=== PATIENT | male | born 1940 | race Caucasian/White ===

== ENCOUNTER → 2017-08-29 | Outpatient (CLI) | payer OTHER ==
[2017-08-29 17:15] LABS: ALBUMIN 3.5 gm/dl (3.4-5.0); ALKALINE PHOSPHATASE 72 U/L (45-117); ALT/SGPT 24 U/L (12-78); AST/SGOT 18 U/L (15-37); BLOOD UREA NITROGEN 23 mg/dl (7-18); CALCIUM 9.4 mg/dl (8.5-10.1); CARBON DIOXIDE 26 mmol/L (21-32); CREATININE 1.14 mg/dl (0.60-1.40); GLUCOSE 111 mg/dl (70-99); POTASSIUM 4.2 mmol/L (3.5-5.1); SODIUM 140 mmol/L (136-145); TOTAL PROTEIN 8.2 gm/dl (6.4-8.2)
[2017-08-29 17:29] LABS: CREATININE RANDOM URINE 78.3 mg/dl
[2017-08-30 06:19] LABS: HEMOGLOBIN A1C 7.4 % (4.5-5.6)
== END | disposition home or self-care (01) ==
LOC: C.LABPBG 12:33
PROVIDERS: ATTEND Physician Assistant
DX: E11.9 Type 2 diabetes mellitus without complications (principal)

== ENCOUNTER 2020-10-25 16:11 | Inpatient (IN) ==
--- NOTE | 2020-10-25 16:52 | Emergency Department Note ---
Impression & Plan Pyelonephritis ED Provider Note NAME: WALDO CRAFT AGE: 80 SEX: M : 1940 ARRIVES VIA: Walk-In INFORMANT: Patient, ED PROVIDER(S): Xiang Campbell MD Chief Complaint: Urinary symptoms, fever, back pain HPI: Patient does present with the above symptoms and states that he believes that his antibiotics have not been working. The patient has been on Keflex, Macrobid as well as Bactrim. I did review the patient's urine culture which shows that it should be sensitive to these medications and the patient has had Enterococcus as well as staph. Patient states that he has had fever to 102 most recently today. The patient does have some lower back discomfort. Patient does have a prior history of kidney stones. Patient denies any blood in the urine or stool. Patient describes the back pain and lower back is nonradiating. Patient denies any bowel or bladder incontinence. Patient denies any saddle anesthesia recent heavy lifting twisting or turning. Patient states he has been having urinary hesitancy. The patient has had issues with prostate before but is not currently follow with a urologist. The patient had followed with urologist in [place] who has since retired. Patient denies any nausea vomiting chest pains or shortness of breath. Patient states he has been compliant with his sc dications. The patient states that he has been taking the antibiotics for 2 to 3 weeks. ROS: See HPI for pertinent positives and negatives. A total of 10 systems were reviewed and otherwise negative. Past medical history: See below Surgical history: See below Social history: See below Physical Exam: GENERAL: Wearing glasses and a mask. NAD, non-toxic. EYE EXAM: Normal conjunctiva. PERRL, no anisocoria and EOM's grossly intact w/o pain. NECK: Supple, no nuchal rigidity, no adenopathy, non-tender. No signs of meningismus. LUNGS: Clear to auscultation. Normal chest wall mechanics. HEART: NSR, no MRG. ABDOMEN: Abdomen soft, non-tender, normo-active bowel sounds, no masses, no rebound or guarding. BACK: No CVA TTP. SKIN: No rashes and no bruising. UPPER EXTREMITIES: Upper extremities are grossly normal. LOWER EXTREMITIES: Grossly normal, no edema. NEURO EXAM: A&O x3, cranial nerves II-XII grossly intact, normal speech, moves all 4 extremities on command w/o issue. Differential diagnoses: Appendicitis, testicular torsion, infections, diverticulitis, UTI, obstruction, mesenteric ischemia, aortic pathology, inflammatory bowel disease, renal colic, PUD, pancreatitis, biliary pathology, hernia, volvulus, constipation, as well as other pathologies. Course: Patient was seen and evaluated the bedside. Full history physical exam was performed. EKG interpreted by me Sinus rhythm, rate of 77, normal intervals, normal axis, to inversion in lead III. PVC noted. Imaging Studies: See below Cardiac monitoring: An order was placed for continuous cardiac monitoring. The monitor shows a rate of 83 with sinus rhythm. MDM: Patient's chest x-ray shows cardiomegaly without obvious edema. Blood work shows a normal white count with mild anemia. Platelet count is unremarkable. Kidney function unremarkable. Troponin is detectable but not elevated. The patient is not complained of any chest pains or shortness of breath. Urinalysis does show leuks and whites with epithelials but no evidence of nitrites or bacteria Covid negative. CT abdomen pelvis shows chronic pancreatitis but no evidence of acute pancreatitis. Patient does have bilateral perinephric fat stranding. Patient has had intermittently lower blood pressures with daily associated perinephric stranding and possible failed outpatient treatment pyelonephritis believe the patient would benefit from inpatient treatment at this time. I did speak with the on-call hospitalist Dr. Amezcua and the patient was admitted to the medicine service. Past Med/Surg History Medical History Arthritis Chronic venous stasis dermatitis of both lower extremities Depression Detached retina, left (~2018) again in 2019 Diabetic neuropathy Lower urinary tract symptoms (LUTS) Lumbar spinal stenosis Mild cognitive impairment Type 2 diabetes mellitus Surgical History History of knee replacement LEFT History of lithotripsy RENAL LITHOTRIPSY Family History Mother Breast cancer Brother Myocardial infarction Denies family history of Ovarian cancer Prostate cancer Colorectal cancer Social History Smoking Status: Former smoker Tobacco Type: Cigarettes Second Hand Exposure: No; Hx Alcohol Use: No Hx Substance Use: No Preferred Language: Estonian Communication Ability: Effective Visual Impairment: No Limitations Hearing Ability: Hard of Hearing Beliefs That Will Affect Care: None marital status: Current Living Situation Comment: lives with spouse current occupational status: retired Feels Safe at Home: Yes Childhood Exposure to Second-Hand Smoke: No caffeine: Yes (Occasional coffee.) during the past year weight has: remained stable Dental Care, Regularly: No Physical Activity Frequency: Other Physical Activity Frequency Comment: LIMITED BY PHYSICAL CONDITION Seatbelt Use: always Sunscreen Use: No Allergies Allergies Allergy/AdvReac Type Severity Reaction Status Date / Time pregabalin [From Lyrica] Allergy racing Verified 10/25/20 17:32 heart and pain down shoulders. Home Meds Home Medications Medication Instructions Recorded Confirmed cholecalciferol (vitamin D3) 50 2,000 units PO BID #30 tab 10/11/18 10/25/20 mcg (2,000 unit) tablet polyethylene glycol 3350 17 17 gm PO .COMPLEX gm 10/11/18 10/25/20 gram/dose oral powder magnesium 200 mg tablet 200 mg PO DAILY 12/22/18 10/25/20 multivitamin (Daily Multiple) 1 tab PO DAILY 12/22/18 10/25/20 omega-3 fatty acids 1,000 mg 1,000 mg PO BID cap 12/22/18 10/25/20 capsule (Fish Oil Concentrate) alpha lipoic acid 300 mg capsule 600 mg PO DAILY cap 01/21/20 10/25/20 Previous Rx's Medication Instructions Recorded tamsulosin 0.4 mg capsule (Flomax) 0.4 mg PO .COMPLEX #90 cap 06/25/20 glipizide 5 mg tablet, extended 5 mg PO DAILY #90 tab 10/01/20 release 24 hr metformin 500 mg tablet 500 mg PO BID #180 tab 10/01/20 Results & Data (ED) Vital Signs Vital Signs - 24 hr 10/25/20 16:17 10/25/20 16:53 10/25/20 17:00 Temperature 36.8 C Temperature Source Oral Pulse Rate 86 75 68 Pulse Rate [Apical] Pulse Rate from SpO2 Sensor Respiratory Rate 18 21 20 Respiratory Effort / Characteristics Non-Labored Spontaneous Respiratory Depth Normal Respiratory Pattern Regular Blood Pressure 121/56 L 94/46 L Blood Pressure [Right Arm] Blood Pressure Mean 77 62 Blood Pressure Mean [Right Arm] Blood Pressure Position Sitting Pulse Oximetry 95 95 Oxygen Delivery Method Room Air Sepsis Recent Fever Within 48 Hours No Sepsis New/Unexplained Change in Mental Status N/A Sepsis Action Taken by Nursing No Action Required 10/25/20 17:20 10/25/20 17:30 10/25/20 18:00 Temperature Temperature Source Pulse Rate 77 71 74 Pulse Rate [Apical] 77 Pulse Rate from SpO2 Sensor 69 73 Respiratory Rate 20 24 20 Respiratory Effort / Characteristics Non-Labored Spontaneous Respiratory Depth Normal Respiratory Pattern Regular Blood Pressure 103/53 L 111/57 L Blood Pressure [Right Arm] 94/46 L Blood Pressure Mean 69 75 Blood Pressure Mean [Right Arm] 62 Blood Pressure Position Pulse Oximetry 95 98 98 Oxygen Delivery Method Room Air Sepsis Recent Fever Within 48 Hours Sepsis New/Unexplained Change in Mental Status Sepsis Action Taken by Nursing 10/25/20 18:31 10/25/20 19:00 10/25/20 19:30 Temperature Temperature Source Pulse Rate 96 H 80 74 Pulse Rate [Apical] Pulse Rate from SpO2 Sensor 70 78 Respiratory Rate 24 24 20 Respiratory Effort / Characteristics Respiratory Depth Respiratory Pattern Blood Pressure 106/50 L 103/46 L Blood Pressure [Right Arm] Blood Pressure Mean 68 65 Blood Pressure Mean [Right Arm] Blood Pressure Position Pulse Oximetry 95 97 91 Oxygen Delivery Method Sepsis Recent Fever Within 48 Hours Sepsis New/Unexplained Change in Mental Status Sepsis Action Taken by Nursing 10/25/20 20:00 10/25/20 20:30 Temperature Temperature Source Pulse Rate 75 83 Pulse Rate [Apical] Pulse Rate from SpO2 Sensor 66 78 Respiratory Rate 21 22 Respiratory Effort / Characteristics Respiratory Depth Respiratory Pattern Blood Pressure 117/58 L 133/81 Blood Pressure [Right Arm] Blood Pressure Mean 77 98 Blood Pressure Mean [Right Arm] Blood Pressure Position Pulse Oximetry 97 97 Oxygen Delivery Method Sepsis Recent Fever Within 48 Hours Sepsis New/Unexplained Change in Mental Status Sepsis Action Taken by [facility] Medications Current Medication List: was personally reviewed by me Laboratory Data Attestation: I reviewed the patient's lab results. Result diagrams: 10/25/20 17:17 10/25/20 17:17 Lab Results 10/25/20 10/25/20 10/25/20 Range/Units 17:17 17:17 18:32 WBC 7.00 (4.8-10.8) K/uL RBC 3.96 L (4.7-6.1) M/uL Hgb 11.7 L (14.0-18.0) g/dL Hct 35.6 L (42-52) % MCV 89.9 (80-100) fL MCH 29.5 (25-34) pg MCHC 32.9 (32-36) g/dL RDW Std Deviation 45.3 (36.4-46.3) fL RDW Coeff of Kayce 13.7 (11.5-14.5) % Plt Count 156 (130-400) K/uL MPV 8.9 (7.4-10.4) fL Immature Gran % (Auto) 0.1 % Neut % (Auto) 63.0 % Lymph % (Auto) 25.3 % [place] % (Auto) 10.6 % Eos % (Auto) 0.6 % Baso % (Auto) 0.4 % Neut # (Auto) 4.41 (1.4-6.5) K/uL Lymph # (Auto) 1.77 (1.2-3.4) K/uL [place] # (Auto) 0.74 H (0.11-0.59) K/uL Eos # (Auto) 0.04 (0-0.5) K/uL Baso # (Auto) 0.03 (0-0.2) K/uL Immature Gran # (Auto) 0.01 (0.00-0.02) K/uL Sodium 138 (136-145) mmol/L Potassium 3.7 (3.5-5.1) mmol/L Chloride 107 (98-107) mmol/L Carbon Dioxide 24 (21-32) mmol/L Anion Gap 7.0 (3-11) BUN 19 H (7-18) mg/dl Creatinine 1.11 (0.6-1.4) mg/dl Est Cr Clr Drug Dosing 58.2 ml/min Est GFR ( Amer) 71.3 ml/min Est GFR (Non-Af Amer) 61.5 ml/min BUN/Creatinine Ratio 17.3 (10-20) Glucose 108 H (70-99) mg/dl Calcium 8.9 (8.5-10.1) mg/dl Magnesium 1.9 (1.8-2.4) mg/dl Total Bilirubin 0.3 (0.2-1) mg/dl AST 20 (15-37) U/L ALT 25 (12-78) U/L Alkaline Phosphatase 59 (45-117) U/L Troponin I 0.033 (0-0.045) ng/ml Total Protein 6.9 (6.4-8.2) gm/dl Albumin 3.2 L (3.4-5.0) gm/dl Globulin 3.7 (2.5-4.0) gm/dl Albumin/Globulin Ratio 0.9 (0.9-2) TSH 0.876 (0.300-4.500) uIu/ml Urine Color Yellow Urine Appearance Clear (Clear) Urine pH 5.5 (4.5-7.5) Ur Specific [place] 1.013 (1.000-1.030) Urine Protein Negative (Negative) Urine Glucose (UA) Negative (Negative) Urine Ketones Negative (Negative) Urine Blood Negative (Negative) Urine Nitrite Negative (Negative) Urine Bilirubin Negative (Negative) Urine Urobilinogen Negative (Negative) Ur Leukocyte Esterase 1+ H (Negative) Urine WBC (Auto) 5-10 H (0-5) /hpf Urine RBC (Auto) 0-4 (0-4) /hpf U Hyaline Cast (Auto) 0 (0-5) /lpf U Epithel Cells (Auto) >30 H (0-5) /lpf Urine Bacteria (Auto) Negative (Negative) COVID-19 Eval Order SARS-CoV-2 (PCR) (Negative) 10/25/20 10/25/20 Range/Units 20:25 20:25 WBC (4.8-10.8) K/uL RBC (4.7-6.1) M/uL Hgb (14.0-18.0) g/dL Hct (42-52) % MCV (80-100) fL MCH (25-34) pg MCHC (32-36) g/dL RDW Std Deviation (36.4-46.3) fL RDW Coeff of Kayce (11.5-14.5) % Plt Count (130-400) K/uL MPV (7.4-10.4) fL Immature Gran % (Auto) % Neut % (Auto) % Lymph % (Auto) % [place] % (Auto) % Eos % (Auto) % Baso % (Auto) % Neut # (Auto) (1.4-6.5) K/uL Lymph # (Auto) (1.2-3.4) K/uL [place] # (Auto) (0.11-0.59) K/uL Eos # (Auto) (0-0.5) K/uL Baso # (Auto) (0-0.2) K/uL Immature Gran # (Auto) (0.00-0.02) K/uL Sodium (136-145) mmol/L Potassium (3.5-5.1) mmol/L Chloride (98-107) mmol/L Carbon Dioxide (21-32) mmol/L Anion Gap (3-11) BUN (7-18) mg/dl Creatinine (0.6-1.4) mg/dl Est Cr Clr Drug Dosing ml/min Est GFR ( Amer) ml/min Est GFR (Non-Af Amer) ml/min BUN/Creatinine Ratio (10-20) Glucose (70-99) mg/dl Calcium (8.5-10.1) mg/dl Magnesium (1.8-2.4) mg/dl Total Bilirubin (0.2-1) mg/dl AST (15-37) U/L ALT (12-78) U/L Alkaline Phosphatase (45-117) U/L Troponin I (0-0.045) ng/ml Total Protein (6.4-8.2) gm/dl Albumin (3.4-5.0) gm/dl Globulin (2.5-4.0) gm/dl Albumin/Globulin Ratio (0.9-2) TSH (0.300-4.500) uIu/ml Urine Color Urine Appearance (Clear) Urine pH (4.5-7.5) Ur Specific [place] (1.000-1.030) Urine Protein (Negative) Urine Glucose (UA) (Negative) Urine Ketones (Negative) Urine Blood (Negative) Urine Nitrite (Negative) Urine Bilirubin (Negative) Urine Urobilinogen (Negative) Ur Leukocyte Esterase (Negative) Urine WBC (Auto) (0-5) /hpf Urine RBC (Auto) (0-4) /hpf U Hyaline Cast (Auto) (0-5) /lpf U Epithel Cells (Auto) (0-5) /lpf Urine Bacteria (Auto) (Negative) COVID-19 Eval Order Covid19 at [facility] SARS-CoV-2 (PCR) NEGATIVE (Negative) Administered Medications Discontinued Medications Sodium Chloride (Nss 1000ml) 1,000 mls @ 999 mls/hr IV .Q1H1M SCOTT Stop: 10/25/20 18:00 Last Infusion: 10/25/20 18:27 Dose: 0 mls/hr Documented by: [id number] Admin: 10/25/20 17:26 Dose: 999 mls/hr Documented by: [id number] Sodium Chloride (Nss) 500 mls @ 999 mls/hr IV .Q31M ONE Stop: 10/25/20 20:39 Last Admin: 10/25/20 20:16 Dose: 999 mls/hr Documented by: [id number] Daptomycin 400 mg/ Syringe 8 mls @ 4 mls/min IV NOW ONE; Protocol Stop: 10/25/20 20:38 Last Admin: 10/25/20 20:59 Dose: 4 mls/min Documented by: [id number] Ioversol (Optiray 320 100ml) 94 ml IV ONCE ONE Stop: 10/25/20 18:18 Last Admin: 10/25/20 18:18 Dose: 94 ml Documented by: [id number] Imaging Data Radiologist's Impression: Abdomen/Pelvis CT 10/25/20 16:[address] WITH IV CONTRAST CT DOSE: 895.09 mGy.cm HISTORY: Urinary retention, fever, h/o stones TECHNIQUE: Multiaxial CT images of the abdomen and pelvis were performed fo llowing the use of intravenous contrast. A dose lowering technique was utilized adhering to the principles of ALARA. COMPARISON STUDY: None. FINDINGS: Mild peripheral interstitial thickening at the lung bases. This is likely chronic. No pneumoperitoneum. No pneumatosis. There is an old mild anterior wedge-shaped compression deformity at L1. No acute fractures within the visualized osseous structures. The heart is mildly enlarged. Coronary artery calcifications are noted. Small fat-containing bilateral inguinal hernias. The liver, gallbladder, spleen, and adrenal glands are within normal limits. There are few punctate calcifications within the pancreas consistent with chronic pancreatitis. No CT evidence for acute pancreatitis. No renal or ureteral stones. No hydronephrosis. Bilateral renal hypodense lesions are noted. The majority of these favor cysts. Dominant lesion within the lower pole of the right kidney measures 6.3 cm. There is an indeterminate exophytic intermediate density lesion within the anterior interpolar left kidney measuring 7 mm. The main portal vein is patent. Normal caliber abdominal aorta. No retroperitoneal l ymphadenopathy. The prostate gland is mildly enlarged. The bladder is mildly distended. There is a 5.5 cm right anterior bladder diverticulum. No pelvic free fluid. Moderate well-formed stool within the colon. No bowel wall thickening or obstruction. Mild bilateral perinephric fat stranding. There is mild bladder wall thickening at the right anterior bladder diverticulum with minimal adjacent fat stranding. This could represent a focal cystitis. IMPRESSION: 1. No bowel wall thickening or obstruction. 2. Chronic pancreatitis. No CT evidence for acute pancreatitis. 3. Mild bilateral perinephric edema/fat stranding. This is indeterminate and could be chronic. Recommend correlation with urinalysis to exclude the less likely possibility of an infectious process. 4. No renal stones or hydronephrosis. 5. Mildly distended bladder with a 5.5 cm anterior bladder diverticulum. The wall of the diverticulum is slightly thickened with minimal adjacent fat stranding. This could represent a cystitis. Recommend correlation with urinalysis. 6. An indeterminate 7 mm intermediate density lesion within the left kidney. This could represent a hyperdense cyst or subcentimeter renal mass. 7. Additional findings as described above. ACT 112: Negative or not required by law. Electronically signed by: Sony Eid M.D. 10/25/2020 6:41 PM Chest X-Ray 10/25/20 16:52 XR chest 1V portable HISTORY: weakness COMPARISON: None. FINDINGS: No pneumothorax. No pleural effusions. The heart is mildly enlarged. There are low lung volumes and mild elevation of the right hemidiaphragm. There is mild central pulmonary vascular congestion without overt edema. No focal lung consolidations to suggest pneumonia. IMPRESSION: Cardiomegaly with mild central pulmonary vascular congestion without overt edema. ACT 112: Negative or not required by law. Electronically signed by: Sony Eid M.D. 10/25/2020 5:11 PM Discharge Plan Visit Data Chief Complaint: Unable to Void Stated Complaint: CANNOT VOID, FEVER ED Provider: Xiang Campbell Discharge Problem: Pyelonephritis Forms Stand Alone Forms: [facility] Prescriptions Prescriptions: No Action tamsulosin [Flomax] 0.4 mg capsule 0.4 mg PO .COMPLEX Qty: 90 RF: 2 metformin 500 mg tablet 500 mg PO BID Qty: 180 RF: 1 glipizide 5 mg tablet extended release 24hr 5 mg PO DAILY Qty: 90 RF: 1 multivitamin [Daily Multiple] tablet 1 tab PO DAILY RF: 0 omega-3 fatty acids [Fish Oil Concentrate] 1,000 mg capsule 1,000 mg PO BID RF: 0 magnesium 200 mg tablet 200 mg PO DAILY RF: 0 cholecalciferol (vitamin D3) 2,000 unit tablet 2,000 units PO BID Qty: 30 RF: 0 polyethylene glycol 3350 17 gram/dose powder 17 gm PO .COMPLEX RF: 0 alpha lipoic acid 300 mg capsule 600 mg PO DAILY RF: 0 Referrals Referrals: Jacqueline Hewitt DO [Primary Care Provider] -
[2020-10-25] MEDS ORDERED: SODIUM CHLORIDE 0.9% 1000ML 1,000 ML IV SCH (17:00)
--- NOTE | 2020-10-25 17:12 | XRay Report ---
XR chest 1V portable HISTORY: weakness COMPARISON: None. FINDINGS: No pneumothorax. No pleural effusions. The heart is mildly enlarged. There are low lung vol umes and mild elevation of the right hemidiaphragm. There is mild central pulmonary vascular congesti on without overt edema. No focal lung consolidations to suggest pneumonia. IMPRESSION: Cardiomegaly with mild central pulmonary vascular congestion without overt edema. ACT 112: Negative or not required by law. Electronically signed by: Sony Eid M.D. 10/25/2020 5:11 PM
[2020-10-25 17:25] LABS: Basophils # (auto) 0.03 K/uL (0-0.2); Basophils % (auto) 0.4 %; Eosinophils # (auto) 0.04 K/uL (0-0.5); Eosinophils % (auto) 0.6 %; Hematocrit (blood only) 35.6 % (42-52); Hemoglobin 11.7 g/dL (14.0-18.0); Immature Granulocytes # (auto) 0.01 K/uL (0.00-0.02); Immature Granulocytes % (auto) 0.1 %; Lymphocytes # (auto) 1.77 K/uL (1.2-3.4); Lymphocytes % (auto) 25.3 %; Mean Corpuscular Hemoglobin 29.5 pg (25-34); Mean Corpuscular Hgb Conc 32.9 g/dL (32-36); Mean Corpuscular Volume 89.9 fL (80-100); Mean Platelet Volume 8.9 fL (7.4-10.4); Monocytes # (auto) 0.74 K/uL (0.11-0.59); Monocytes % (auto) 10.6 %; Neutrophils # (auto) 4.41 K/uL (1.4-6.5); Platelet Count 156 K/uL (130-400); RDW Coefficient of Variation 13.7 % (11.5-14.5); RDW Standard Deviation 45.3 fL (36.4-46.3); Red Blood Count 3.96 M/uL (4.7-6.1)
[2020-10-25 17:46] LABS: Albumin Level 3.2 gm/dl (3.4-5.0); BUN Creatinine Ratio 17.3 (10-20); Calcium 8.9 mg/dl (8.5-10.1); Creatinine Clr Calc Pharmacy 58.2 ml/min; Est GFR (African American) 71.3 ml/min; Est GFR (Non-African American) 61.5 ml/min; Magnesium 1.9 mg/dl (1.8-2.4); Potassium 3.7 mmol/L (3.5-5.1)
[2020-10-25 17:57] LABS: Albumin Globulin Ratio 0.9 (0.9-2); Bilirubin,Total 0.3 mg/dl (0.2-1); Globulin 3.7 gm/dl (2.5-4.0); Thyroid Stimulating Hormone 0.876 uIu/ml (0.300-4.500); Total Protein 6.9 gm/dl (6.4-8.2); Troponin I 0.033 ng/ml (0-0.045)
[2020-10-25] MEDS ORDERED: OPTIRAY 320 100ml IV ONE (18:17)
--- NOTE | 2020-10-25 18:42 | CT Scan Report ---
ABDOMEN AND PELVIS CT WITH IV CONTRAST CT DOSE: 895.09 mGy.cm HISTORY: Urinary retention, fever, h/o stones TECHNIQUE: Multiaxial CT images of the abdomen and pelvis were performed following the use of intrave nous contrast. A dose lowering technique was utilized adhering to the principles of ALARA. COMPARISON STUDY: None. FINDINGS: Mild peripheral interstitial thickening at the lung bases. This is likely chronic. No pneum operitoneum. No pneumatosis. There is an old mild anterior wedge-shaped compression deformity at L1. No acute fractures within the visualized osseous structures. The heart is mildly enlarged. Coronary a rtery calcifications are noted. Small fat-containing bilateral inguinal hernias. The liver, gallbladd er, spleen, and adrenal glands are within normal limits. There are few punctate calcifications within the pancreas consistent with chronic pancreatitis. No CT evidence for acute pancreatitis. No renal o r ureteral stones. No hydronephrosis. Bilateral renal hypodense lesions are noted. The majority of th elliott favor cysts. Dominant lesion within the lower pole of the right kidney measures 6.3 cm. There is an indeterminate exophytic intermediate density lesion within the anterior interpolar left kidney primo suring 7 mm. The main portal vein is patent. Normal caliber abdominal aorta. No retroperitoneal lymph adenopathy. The prostate gland is mildly enlarged. The bladder is mildly distended. There is a 5.5 cm right anterior bladder diverticulum. No pelvic free fluid. Moderate well-formed stool within the col on. No bowel wall thickening or obstruction. Mild bilateral perinephric fat stranding. There is mild bladder wall thickening at the right anterior bladder diverticulum with minimal adjacent fat strandin g. This could represent a focal cystitis. IMPRESSION: 1. No bowel wall thickening or obstruction. 2. Chronic pancreatitis. No CT evidence for acute pancreatitis. 3. Mild bilateral perinephric edema/fat stranding. This is indeterminate and could be chronic. Recomm end correlation with urinalysis to exclude the less likely possibility of an infectious process. 4. No renal stones or hydronephrosis. 5. Mildly distended bladder with a 5.5 cm anterior bladder diverticulum. The wall of the diverticulum is slightly thickened with minimal adjacent fat stranding. This could represent a cystitis. Recommen d correlation with urinalysis. 6. An indeterminate 7 mm intermediate density lesion within the left kidney. This could represent a h yperdense cyst or subcentimeter renal mass. 7. Additional findings as described above. ACT 112: Negative or not required by law. Electronically signed by: Sony Eid M.D. 10/25/2020 6:41 PM
[2020-10-25 18:47] LABS: Appearance Urine Clear (Clear); Bacteria Urine Automated Negative (Negative); Bilirubin Urine Negative (Negative); Blood Urine Negative (Negative); Color Urine Yellow; Epithelial Cell Urine Auto >30 /lpf (0-5); Glucose Urine UA Negative (Negative); Ketones Urine Negative (Negative); Leukocyte Esterase Urine 1+ (Negative); Nitrite Urine Negative (Negative); Protein Urine Negative (Negative); RBC Urine Automated 0-4 /hpf (0-4); Specific Gravity Urine 1.013 (1.000-1.030); Urobilinogen Urine Negative (Negative); pH Urine 5.5 (4.5-7.5)
[2020-10-25 19:24] LABS: Cast Urine Automated 0 /lpf (0-5)
[2020-10-25] MEDS ORDERED: SODIUM CHLORIDE 0.9% 500 ML IV ONE (20:09)
[2020-10-25] MEDS ORDERED: DAPTOmycin 400 MG in SYRINGE 0 ML IV ONE (20:37)
--- NOTE | 2020-10-25 21:28 | History & Physical Report ---
Date of Service October 25, 2020 Assessment & Plan (1) BPH w urinary obs/LUTS: Plan: BPH with LUTS/bilateral pyelonephritis- Follow urine culture and sensitivity History of Enterococcus faecalis and coag negative staph previous UTIs Daptomycin 40 mg IV daily NSS + KCl 20 mEq at 80 mils per hour x1 L Follow urine output closely Presently taking tamsulosin 0.4 mg every other day, which will be changed to daily at bedtime If symptoms are persistent, will consult urology, as previous urologist he had in [place] is no longer there. (2) Pyelonephritis: Plan: See above (3) Type 2 diabetes mellitus: Plan: Hold Metformin and glipizide. Placed on Accu-Cheks before meals and at bedtime NovoLog coverage per scale Check hemoglobin A1c (4) Mild cognitive impairment: Plan: Patient is able to communicate effectively. 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 The patient presents with symptoms as noted above. He has previously followed with urology in [place], but that person has read since retired. Allergies Allergy/AdvReac Type Severity Reaction Status Date / Time pregabalin [From Lyrica] Allergy racing Verified 10/25/20 17:32 heart and pain down shoulders. Home Medications Medication Instructions Recorded Confirmed Type cholecalciferol (vitamin D3) 50 2,000 units PO BID #30 tab 10/11/18 10/25/20 History mcg (2,000 unit) tablet polyethylene glycol 3350 17 17 gm PO .COMPLEX gm 10/11/18 10/25/20 History gram/dose oral powder magnesium 200 mg tablet 200 mg PO DAILY 12/22/18 10/25/20 History multivitamin (Daily Multiple) 1 tab PO DAILY 12/22/18 10/25/20 History omega-3 fatty acids 1,000 mg 1,000 mg PO BID cap 12/22/18 10/25/20 History capsule (Fish Oil Concentrate) alpha lipoic acid 300 mg capsule 600 mg PO DAILY cap 01/21/20 10/25/20 History tamsulosin 0.4 mg capsule (Flomax) 0.4 mg PO .COMPLEX #90 cap 06/25/20 10/25/20 Rx glipizide 5 mg tablet, extended 5 mg PO DAILY #90 tab 10/01/20 10/25/20 Rx release 24 hr metformin 500 mg tablet 500 mg PO BID #180 tab 10/01/20 10/25/20 Rx Past Med/Surg History Medical History (Updated 10/25/20 @ 23:37 by Aureliano Thakkar MD) Arthritis BPH w urinary obs/LUTS Chronic venous stasis dermatitis of both lower extremities Depression Detached retina, left (~2018) again in 2019 Diabetic neuropathy Lower urinary tract symptoms (LUTS) Lumbar spinal stenosis Mild cognitive impairment Type 2 diabetes mellitus Surgical History History of knee replacement LEFT History of lithotripsy RENAL LITHOTRIPSY Family History Mother Breast cancer Brother Myocardial infarction Denies family history of Ovarian cancer Prostate cancer Colorectal cancer Social History Smoking Status: Former smoker Tobacco Type: Cigarettes Second Hand Exposure: No; Hx Alcohol Use: No Hx Substance Use: No Preferred Language: Guyanese Communication Ability: Effective Visual Impairment: No Limitations Hearing Ability: Hard of Hearing Beliefs That Will Affect Care: None marital status: Current Living Situation Comment: lives with spouse current occupational status: retired Feels Safe at Home: Yes Childhood Exposure to Second-Hand Smoke: No caffeine: Yes (Occasional coffee.) during the past year weight has: remained stable Dental Care, Regularly: No Physical Activity Frequency: Other Physical Activity Frequency Comment: LIMITED BY PHYSICAL CONDITION Seatbelt Use: always Sunscreen Use: No Review of Systems Review of Systems: The patient denies chest pain, palpitations, shortness of breath, dyspnea on exertion, cough, lower extremity swelling, sore throat, fevers, chills, sweats, nausea, vomiting, diarrhea , constipation, abdominal pain, pelvic pain, blood in urine or stool, lightheadedness, dizziness, headache, memory loss, loss of consciousness, rash, abnormal bruising or bleeding, imbalance, focal weakness, numbness or tingling in arms or legs, generalized arthralgias or myalgias, neck pain, or night sweats. The review of systems is otherwise negative other than for that already noted above, and at least 10 systems have been reviewed. Physical Exam Physical Exam: The patient is awake, alert and oriented 3, well developed and well nourished, normocephalic and atraumatic, lying in bed and in no acute distress. HEENT--PERRL, EOMI, mucous membranes and oropharynx normal. Neck--supple. No JVD. No bruits. Thyroid normal, trachea midline, no adenopathy. Heart--normal S1 and S2. No murmurs, rubs or gallops. Lungs--clear bilaterally, no respiratory distress, no accessory muscle use. Abdomen--normal bowel sounds and soft. Nontender. Nondistended. Extremities--no cyanosis or clubbing. No edema. Dermatologic--skin is mildly dry Neurologic--cranial nerves II through XII grossly intact. Rheumatologic--normal range of motion. Psychiatric--normal affect. Results & Data Results & Data ([facility]) Vital Signs (Past 12 Hours) Vital Signs Temp Pulse Pulse Resp BP BP Pulse Ox 10/25/20 20:30 83 22 133/81 97 10/25/20 20:00 75 21 117/58 L 97 10/25/20 19:30 74 20 103/46 L 91 10/25/20 19:00 80 24 106/50 L 97 10/25/20 18:31 96 H 24 95 10/25/20 18:00 74 20 111/57 L 98 10/25/20 17:30 71 24 103/53 L 98 10/25/20 17:20 77 77 20 94/46 L 95 10/25/20 17:00 68 20 94/46 L 95 10/25/20 16:53 75 21 10/25/20 16:17 98.2 F 86 18 121/56 L 95 Laboratory Results Laboratory Results WBC 7.00 K/uL (4.8-10.8) 10/25/20 17:17 RBC 3.96 M/uL (4.7-6.1) L 10/25/20 17:17 Hgb 11.7 g/dL (14.0-18.0) L 10/25/20 17:17 Hct 35.6 % (42-52) L 10/25/20 17:17 MCV 89.9 fL (80-100) 10/25/20 17:17 MCH 29.5 pg (25-34) 10/25/20 17:17 MCHC 32.9 g/dL (32-36) 10/25/20 17:17 RDW Std Deviation 45.3 fL (36.4-46.3) 10/25/20 17:17 RDW Coeff of Kayce 13.7 % (11.5-14.5) 10/25/20 17:17 Plt Count 156 K/uL (130-400) 10/25/20 17:17 MPV 8.9 fL (7.4-10.4) 10/25/20 17:17 Immature Gran % (Auto) 0.1 % 10/25/20 17:17 Neut % (Auto) 63.0 % 10/25/20 17:17 Lymph % (Auto) 25.3 % 10/25/20 17:17 Trigg % (Auto) 10.6 % 10/25/20 17:17 Eos % (Auto) 0.6 % 10/25/20 17:17 Baso % (Auto) 0.4 % 10/25/20 17:17 Neut # (Auto) 4.41 K/uL (1.4-6.5) 10/25/20 17:17 Lymph # (Auto) 1.77 K/uL (1.2-3.4) 10/25/20 17:17 Trigg # (Auto) 0.74 K/uL (0.11-0.59) H 10/25/20 17:17 Eos # (Auto) 0.04 K/uL (0-0.5) 10/25/20 17:17 Baso # (Auto) 0.03 K/uL (0-0.2) 10/25/20 17:17 Immature Gran # (Auto) 0.01 K/uL (0.00-0.02) 10/25/20 17:17 Sodium 138 mmol/L (136-145) 10/25/20 17:17 Potassium 3.7 mmol/L (3.5-5.1) 10/25/20 17:17 Chloride 107 mmol/L (98-107) 10/25/20 17:17 Carbon Dioxide 24 mmol/L (21-32) 10/25/20 17:17 Anion Gap 7.0 (3-11) 10/25/20 17:17 BUN 19 mg/dl (7-18) H 10/25/20 17:17 Creatinine 1.11 mg/dl (0.6-1.4) 10/25/20 17:17 Est Cr Clr Drug Dosing 58.2 ml/min 10/25/20 17:17 Est GFR ( Amer) 71.3 ml/min 10/25/20 17:17 Est GFR (Non-Af Amer) 61.5 ml/min 10/25/20 17:17 BUN/Creatinine Ratio 17.3 (10-20) 10/25/20 17:17 Glucose 108 mg/dl (70-99) H 10/25/20 17:17 Calcium 8.9 mg/dl (8.5-10.1) 10/25/20 17:17 Magnesium 1.9 mg/dl (1.8-2.4) 10/25/20 17:17 Total Bilirubin 0.3 mg/dl (0.2-1) 10/25/20 17:17 AST 20 U/L (15-37) 10/25/20 17:17 ALT 25 U/L (12-78) 10/25/20 17:17 Alkaline Phosphatase 59 U/L (45-117) 10/25/20 17:17 Troponin I 0.033 ng/ml (0-0.045) 10/25/20 17:17 Total Protein 6.9 gm/dl (6.4-8.2) 10/25/20 17:17 Albumin 3.2 gm/dl (3.4-5.0) L 10/25/20 17:17 Globulin 3.7 gm/dl (2.5-4.0) 10/25/20 17:17 Albumin/Globulin Ratio 0.9 (0.9-2) 10/25/20 17:17 TSH 0.876 uIu/ml (0.300-4.500) 10/25/20 17:17 Urine Color Yellow 10/25/20 18:32 Urine Appearance Clear (Clear) 10/25/20 18:32 Urine pH 5.5 (4.5-7.5) 10/25/20 18:32 Ur Specific [place] 1.013 (1.000-1.030) 10/25/20 18:32 Urine Protein Negative (Negative) 10/25/20 18:32 Urine Glucose (UA) Negative (Negative) 10/25/20 18:32 Urine Ketones Negative (Negative) 10/25/20 18:32 Urine Blood Negative (Negative) 10/25/20 18:32 Urine Nitrite Negative (Negative) 10/25/20 18:32 Urine Bilirubin Negative (Negative) 10/25/20 18:32 Urine Urobilinogen Negative (Negative) 10/25/20 18:32 Ur Leukocyte Esterase 1+ (Negative) H 10/25/20 18:32 Urine WBC (Auto) 5-10 /hpf (0-5) H 10/25/20 18:32 Urine RBC (Auto) 0-4 /hpf (0-4) 10/25/20 18:32 U Hyaline Cast (Auto) 0 /lpf (0-5) 10/25/20 18:32 U Epithel Cells (Auto) >30 /lpf (0-5) H 10/25/20 18:32 Urine Bacteria (Auto) Negative (Negative) 10/25/20 18:32 COVID-19 Eval Order Covid19 at [facility] 10/25/20 20:25 SARS-CoV-2 (PCR) NEGATIVE (Negative) 10/25/20 20:25 Impressions Abdomen/Pelvis CT 10/25/20 16:[address] WITH IV CONTRAST CT DOSE: 895.09 mGy.cm HISTORY: Urinary retention, fever, h/o stones TECHNIQUE: Multiaxial CT images of the abdomen and pelvis were performed following the use of intravenous contrast. A dose lowering technique was utilized adhering to the principles of ALARA. COMPARISON STUDY: None. FINDINGS: Mild peripheral interstitial thickening at the lung bases. This is likely chronic. No pneumoperitoneum. No pneumatosis. There is an old mild anterior wedge-shaped compression deformity at L1. No acute fractures within the visualized osseous structures. The heart is mildly enlarged. Coronary artery calcifications are noted. Small fat-containing bilateral inguinal hernias. The liver, gallbladder, spleen, and adrenal glands are within normal limits. There are few punctate calcifications within the pancreas consistent with chronic pancreatitis. No CT evidence for acute pancreatitis. No renal or ureteral stones. No hydronephrosis. Bilateral renal hypodense lesions are noted. The majority of these favor cysts. Dominant lesion within the lower pole of the right kidney measures 6.3 cm. There is an indeterminate exophytic intermediate density lesion within the anterior interpolar left kidney measuring 7 mm. The main portal vein is patent. Normal caliber abdominal aorta. No retroperitoneal lymphadenopathy. The prostate gland is mildly enlarged. The bladder is mildly distended. There is a 5.5 cm right anterior bladder diverticulum. No pelvic free fluid. Moderate well-formed stool within the colon. No bowel wall thickening or obstruction. Mild bilateral perinephric fat stranding. There is mild bladder wall thickening at the right anterior bladder diverticulum with minimal adjacent fat stranding. This could represent a focal cystitis. IMPRESSION: 1. No bowel wall thickening or obstruction. 2. Chronic pancreatitis. No CT evidence for acute pancreatitis. 3. Mild bilateral perinephric edema/fat stranding. This is indeterminate and could be chronic. Recommend correlation with urinalysis to exclude the less likely possibility of an infectious process. 4. No renal stones or hydronephrosis. 5. Mildly distended bladder with a 5.5 cm anterior bladder diverticulum. The wall of the diverticulum is slightly thickened with minimal adjacent fat stranding. This could represent a cystitis. Recommend correlation with urinalysis. 6. An indeterminate 7 mm intermediate density lesion within the left kidney. This could represent a hyperdense cyst or subcentimeter renal mass. 7. Additional findings as described above. ACT 112: Negative or not required by law. Electronically signed by: Sony Eid M.D. 10/25/2020 6:41 PM Chest X-Ray 10/25/20 16:52 XR chest 1V portable HISTORY: weakness COMPARISON: None. FINDINGS: No pneumothorax. No pleural effusions. The heart is mildly enlarged. There are low lung volumes and mild elevation of the right hemidiaphragm. There is mild central pulmonary vascular congestion without overt edema. No focal lung consolidations to suggest pneumonia. IMPRESSION: Cardiomegaly with mild central pulmonary vascular congestion without overt edema. ACT 112: Negative or not required by law. Electronically signed by: Sony Eid M.D. 10/25/2020 5:11 PM Code Status & VTE Plan Code Status Full code VTE Prophylaxis Plan VTE Prophylaxis will be ordered: Yes PG Care Time/CCT Total # of Minutes Spent Total Time Spent with Patient: Total time spent is greater than 50% in coordination of care (as documented) at patient's floor/unit and/or counseling patient: Coding Level of Care Code 91298 Initial Inpt Care Lvl 3 Diagnoses Pyelonephritis N12 BPH w urinary obs/LUTS N40.1; N13.8 Type 2 diabetes mellitus E11.9 Mild cognitive impairment G31.84
[2020-10-25] MEDS ORDERED: CARBOHYDRATES FOR HYPOGLYCEMIA PO PRN (22:57)
[2020-10-25] MEDS ORDERED: NSS + 20MEQ KCL 20 MEQ/1,000 ML BAG IV SCH (22:57)
[2020-10-25] MEDS ORDERED: GLUCOSE 40% GEL 15 GM TUBE PO PRN (22:57)
[2020-10-25] MEDS ORDERED: GLUCAGON FOR INJ 1 MG VIAL SQ PRN (22:57)
[2020-10-25] MEDS ORDERED: ONDANSETRON INJ 2 MG/ML 2 ML VIAL IV PRN (22:57)
[2020-10-25] MEDS ORDERED: GLUCOSE 10 TABS/TUBE PO PRN (22:57)
[2020-10-25] MEDS ORDERED: DEXTROSE 50% 50 ML SYRINGE IV PRN (22:57)
[2020-10-26] MEDS: CHOLECALCIFEROL 1,000 UNITS 25 MCG TAB PO SCH ×3 (00:17→20:07)
[2020-10-26] MEDS: ACETAMINOPHEN 325 MG TAB PO PRN (05:42)
[2020-10-26 06:30] LABS: Albumin Level 3.1 gm/dl (3.4-5.0); BUN Creatinine Ratio 17.8 (10-20); Calcium 8.6 mg/dl (8.5-10.1); Creatinine Clr Calc Pharmacy 79.9 ml/min; Est GFR (African American) 95.4 ml/min; Est GFR (Non-African American) 82.4 ml/min; Potassium 3.8 mmol/L (3.5-5.1)
[2020-10-26 06:32] LABS: Albumin Globulin Ratio 0.9 (0.9-2); Bilirubin,Total 0.4 mg/dl (0.2-1); Globulin 3.6 gm/dl (2.5-4.0); Total Protein 6.7 gm/dl (6.4-8.2)
[2020-10-26 07:00] LABS: Basophils # (auto) 0.01 K/uL (0-0.2); Basophils % (auto) 0.2 %; Eosinophils # (auto) 0.07 K/uL (0-0.5); Eosinophils % (auto) 1.1 %; Hemoglobin 11.1 g/dL (14.0-18.0); Immature Granulocytes # (auto) 0.01 K/uL (0.00-0.02); Immature Granulocytes % (auto) 0.2 %; Lymphocytes # (auto) 0.72 K/uL (1.2-3.4); Lymphocytes % (auto) 11.6 %; Mean Corpuscular Hemoglobin 29.2 pg (25-34); Mean Corpuscular Volume 92.1 fL (80-100); Mean Platelet Volume 9.3 fL (7.4-10.4); Monocytes % (auto) 8.1 %; Neutrophils # (auto) 4.89 K/uL (1.4-6.5); Neutrophils % (auto) 78.8 %; Platelet Count 149 K/uL (130-400); RDW Coefficient of Variation 13.9 % (11.5-14.5); RDW Standard Deviation 46.9 fL (36.4-46.3)
[2020-10-26 07:05] LABS: Mean Corpuscular Hgb Conc 31.7 g/dL (32-36)
--- NOTE | 2020-10-26 07:43 | Hospitalist Progress Note ---
Date of Service October 26, 2020 Assessment & Plan (1) BPH w urinary obs/LUTS: Plan: BPH with LUTS/bilateral pyelonephritis-unfortunately urine culture was obtained on presentation we will attempt to straight cath culture today History of Enterococcus faecalis and coag negative staph previous UTIs concern is mention of the possible infected bladder diverticulum with cystitis/pyelonephritis is seen on imaging Daptomycin [address] abd/pelvis IMPRESSION: 1. No bowel wall thickening or obstruction. 2. Chronic pancreatitis. No CT evidence for acute pancreatitis. 3. Mild bilateral perinephric edema/fat stranding. This is indeterminate and could be chronic. 4. No renal stones or hydronephrosis. 5. Mildly distended bladder with a 5.5 cm anterior bladder diverticulum. The wall of the diverticulum is slightly thickened with minimal adjacent fat stranding. This could represent a cystitis. 6. An indeterminate 7 mm intermediate density lesion within the left kidney. This could represent a hyperdense cyst or subcentimeter renal mass. If symptoms are persistent, will consult urology, as previous urologist he had in [place] is no longer there. (2) Pyelonephritis: Plan: See above (3) Type 2 diabetes mellitus: Plan: Hold Metformin and glipizide. Placed on Accu-Cheks before meals and at bedtime NovoLog coverage per scale hemoglobin A1c 7.1% (4) Mild cognitive impairment: Plan: Patient is able to communicate effectively. Is not on any specific medication or treatment (5) DVT prophylaxis: Plan: Heparin subcu for DVT prevention Admission and Anticipated Discharge Date Admission Date: October 25, 2020 Subjective Patient has no new complaints or problems is various aches and pains and body discomfort. Is just overall displeased with his progress prior to this hospitalization with his persistent urinary issues. 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 Urine cultures currently pending Review of Systems Review of Systems: Mild distress and moderate fatigue no headache, no visual changes no speech or swallowing issues no chest pain, pressure or palpitations no shortness of breath, cough or wheezes Generalized abdominal pain no dysuria no feelings of urinary retention no diarrhea no dysuria, hematuria or frequency no focal joint pain or swelling no back pain, CVA tenderness or radicular pain no bruising, bleeding or rashes no focal signs of weakness or numbness or altered sensation no complaints of anxiety or depression.. Physical Exam Physical Exam: The patient appeared well nourished and normally developed. Vital signs as documented. Head exam is normocephalic atraumatic Neck is without JVD, thyromegaly, or carotid bruits. Lungs are clear to auscultation, no focal loss of breath sounds Cardiac exam, Rhythm is regular.. No murmurs, rubs or gallops. Abdominal exam reveals normal bowel sounds, soft non tender, no masses no CVA angle tenderness Extremities are nonedematous and both pedal pulses are present Neurologic exam is alert and oriented, no focal loss of strength or sensation Skin is without bruises or rashes Psychologically is without concerns for anxiety or depression Results & Data Results & Data ([facility]) Vital Signs (Past 12 Hours) Vital Signs Temp Pulse Pulse Resp BP BP Pulse Ox 10/26/20 05:41 99.3 F 10/25/20 23:00 99.9 F H 77 18 159/90 H 95 10/25/20 22:00 69 20 126/65 94 10/25/20 21:30 63 23 122/62 96 10/25/20 21:00 16 134/75 10/25/20 20:30 83 22 133/81 97 10/25/20 20:00 75 21 117/58 L 97 PG Care Time/CCT Total # of Minutes Spent Total Time Spent with Patient: Total time spent is greater than 50% in coordination of care (as documented) at patient's floor/unit and/or counseling patient: Coding Level of Care Code 65330 Subseq Hosp Care Lvl 2 Diagnoses BPH w urinary obs/LUTS N40.1; N13.8 Pyelonephritis N12 Type 2 diabetes mellitus E11.9 Mild cognitive impairment G31.84 DVT prophylaxis Z29.9
[2020-10-26] MEDS: HEPARIN SOD 5,000 UNIT/0.5 ML VIAL SQ SCH ×2 (08:30→20:08)
[2020-10-26] MEDS: OMEGA-3 (PURIFIED FISH OIL) 1 GM CAP PO SCH ×2 (08:31→20:08)
[2020-10-26] MEDS: MAGNESIUM OXIDE 400 MG TAB PO SCH (08:31)
[2020-10-26] MEDS: MULTIVITAMIN TAB PO SCH (08:32)
[2020-10-26] MEDS: INSULIN ASPART 100 UNITS/ML 3 ML PEN SC SCH ×4 (08:33→21:55)
[2020-10-26] MEDS ORDERED: NON-FORMULARY MEDICATION (Alpha Lipoic Acid 300 mg capsule) PO SCH (09:00)
[2020-10-26] MEDS: POLYETHYLENE (MIRALAX) 17 GM PACK PO PRN (10:22)
--- NOTE | 2020-10-26 13:20 | Electrocardiogram Report ---
Test Reason : Blood Pressure : / mmHG Vent. Rate : 077 BPM Atrial Rate : 077 BPM P-R Int : 198 ms QRS Dur : 104 ms QT Int : 394 ms P-R-T Axes : 025 -25 -01 degrees QTc Int : 445 ms Sinus rhythm with marked sinus arrhythmia with occasional Premature ventricular complexes Otherwise normal ECG No previous ECGs available Confirmed by Vadim Gallegos ([id number]) on 10/26/2020 1:20:03 PM Referred By: REFERRED SELF Confirmed By:Vadim Gallegos
[2020-10-26] MEDS ORDERED: DAPTOmycin 300 MG in SYRINGE 0 ML IV SCH (18:00)
[2020-10-26] MEDS: TAMSULOSIN HCL 0.4 MG CAP PO SCH (20:08)
[2020-10-27] MEDS: ACETAMINOPHEN 325 MG TAB PO PRN (05:16)
[2020-10-27 06:34] LABS: Basophils # (auto) 0.03 K/uL (0-0.2); Basophils % (auto) 0.4 %; Eosinophils # (auto) 0.17 K/uL (0-0.5); Eosinophils % (auto) 2.5 %; Hematocrit (blood only) 33.8 % (42-52); Hemoglobin 10.8 g/dL (14.0-18.0); Lymphocytes # (auto) 1.91 K/uL (1.2-3.4); Lymphocytes % (auto) 28.2 %; Mean Corpuscular Hemoglobin 29.4 pg (25-34); Mean Corpuscular Volume 92.1 fL (80-100); Mean Platelet Volume 9.2 fL (7.4-10.4); Monocytes # (auto) 0.83 K/uL (0.11-0.59); Monocytes % (auto) 12.3 %; Neutrophils # (auto) 3.83 K/uL (1.4-6.5); Neutrophils % (auto) 56.6 %; Platelet Count 135 K/uL (130-400); RDW Coefficient of Variation 13.8 % (11.5-14.5); RDW Standard Deviation 46.6 fL (36.4-46.3); Red Blood Count 3.67 M/uL (4.7-6.1); White Blood Count 6.77 K/uL (4.8-10.8)
[2020-10-27 07:06] LABS: Albumin Level 2.6 gm/dl (3.4-5.0); BUN Creatinine Ratio 18.4 (10-20); Calcium 8.5 mg/dl (8.5-10.1); Creatinine Clr Calc Pharmacy 73.6 ml/min; Est GFR (African American) 92.3 ml/min; Est GFR (Non-African American) 79.6 ml/min; Potassium 3.6 mmol/L (3.5-5.1)
[2020-10-27 07:09] LABS: Albumin Globulin Ratio 0.7 (0.9-2); Bilirubin,Total 0.4 mg/dl (0.2-1); Globulin 3.7 gm/dl (2.5-4.0); Total Protein 6.3 gm/dl (6.4-8.2)
--- NOTE | 2020-10-27 07:44 | Hospitalist Progress Note ---
Date of Service October 27, 2020 Assessment & Plan (1) BPH w urinary obs/LUTS: Plan: BPH with LUTS/bilateral pyelonephritis-unfortunately urine culture was obtained on presentation we will attempt to straight cath culture today History of Enterococcus faecalis and coag negative staph previous UTIs concern is mention of the possible infected bladder diverticulum with cystitis/pyelonephritis is seen on imaging Daptomycin IV daily, since no culture to help guide antibiotic choice may lean toward levaquin for prostatis and need 2-4 weeks of treatment with outpt urology referral CT abd/pelvis IMPRESSION: 1. No bowel wall thickening or obstruction. 2. Chronic pancreatitis. No CT evidence for acute pancreatitis. 3. Mild bilateral perinephric edema/fat stranding. This is indeterminate and could be chronic. 4. No renal stones or hydronephrosis. 5. Mildly distended bladder with a 5.5 cm anterior bladder diverticulum. The wall of the diverticulum is slightly thickened with minimal adjacent fat stranding. This could represent a cystitis. 6. An indeterminate 7 mm intermediate density lesion within the left kidney. This could represent a hyperdense cyst or subcentimeter renal mass. If symptoms are persistent, will consult urology, as previous urologist he had in [place] is no longer there. (2) Pyelonephritis: Plan: See above, on imaging but culltures not correlating (3) Type 2 diabetes mellitus: Plan: Hold Metformin and glipizide. Placed on Accu-Cheks before meals and at bedtime NovoLog coverage per scale hemoglobin A1c 7.1% (4) Mild cognitive impairment: Plan: metabolic encephalopahty poa, now resolving Patient is able to communicate effectively. Is not on any specific medication or treatment (5) DVT prophylaxis: Plan: Heparin subcu for DVT prevention Admission and Anticipated Discharge Date Admission Date: October 25, 2020 Subjective Patient has no new complaints or problems is various aches and pains and body discomfort. Is just overall displeased with his progress prior to this hospitalization with his persistent urinary issues. 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 Urine cultures have been unrevealing Review of Systems Review of Systems: Mild distress and moderate fatigue no headache, no visual changes no speech or swallowing issues no chest pain, pressure or palpitations no shortness of breath, cough or wheezes Generalized abdominal pain no dysuria no feelings of urinary retention no diarrhea no dysuria, hematuria or frequency no focal joint pain or swelling no back pain, CVA tenderness or radicular pain no bruising, bleeding or rashes no focal signs of weakness or numbness or altered sensation no complaints of anxiety or depression.. Physical Exam Physical Exam: The patient appeared well nourished and normally developed. Vital signs as documented. Head exam is normocephalic atraumatic Neck is without JVD, thyromegaly, or carotid bruits. Lungs are clear to auscultation, no focal loss of breath sounds Cardiac exam, Rhythm is regular.. No murmurs, rubs or gallops. Abdominal exam reveals normal bowel sounds, soft non tender, no masses no CVA angle tenderness Extremities are nonedematous and both pedal pulses are present Neurologic exam is alert and oriented, no focal loss of strength or sensation Skin is without bruises or rashes Psychologically is without concerns for anxiety or depression Results & Data Results & Data ([facility]) Vital Signs (Past 12 Hours) Vital Signs Temp Pulse Resp BP BP Pulse Ox 10/27/20 05:57 98.8 F 72 22 121/63 96 10/26/20 23:10 100.4 F H 78 20 130/78 94 10/26/20 20:04 98.1 F PG Care Time/CCT Total # of Minutes Spent Total Time Spent with Patient: Total time spent is greater than 50% in coordination of care (as documented) at patient's floor/unit and/or counseling patient: Coding Level of Care Code 74999 Subseq Hosp Care Lvl 2 Diagnoses BPH w urinary obs/LUTS N40.1; N13.8 Pyelonephritis N12 Type 2 diabetes mellitus E11.9 Mild cognitive impairment G31.84 DVT prophylaxis Z29.9
[2020-10-27 07:45] LABS: Estimated Average Glucose 140 mg/dl; Hemoglobin A1C 6.5 % (4.5-5.6)
[2020-10-27] MEDS: MAGNESIUM OXIDE 400 MG TAB PO SCH (09:17)
[2020-10-27] MEDS: OMEGA-3 (PURIFIED FISH OIL) 1 GM CAP PO SCH ×2 (09:17→20:19)
[2020-10-27] MEDS: CHOLECALCIFEROL 1,000 UNITS 25 MCG TAB PO SCH ×2 (09:17→20:19)
[2020-10-27] MEDS: HEPARIN SOD 5,000 UNIT/0.5 ML VIAL SQ SCH ×2 (09:18→20:20)
[2020-10-27] MEDS: MULTIVITAMIN TAB PO SCH (09:18)
[2020-10-27] MEDS: INSULIN ASPART 100 UNITS/ML 3 ML PEN SC SCH ×4 (09:20→21:45)
[2020-10-27] MEDS: POLYETHYLENE (MIRALAX) 17 GM PACK PO PRN (09:35)
[2020-10-27] MEDS: levoFLOXacin 750 MG TAB PO SCH (18:45)
[2020-10-27] MEDS: TAMSULOSIN HCL 0.4 MG CAP PO SCH (20:19)
[2020-10-28] MEDS ORDERED: MAGNESIUM HYDROXIDE SUSP 30 ML UDC PO ONE (00:13)
[2020-10-28] MEDS ORDERED: MAGNESIUM HYDROXIDE SUSP 30 ML UDC PO PRN (00:13)
[2020-10-28 06:40] LABS: Hematocrit (blood only) 36.2 % (42-52); Hemoglobin 11.8 g/dL (14.0-18.0); Mean Corpuscular Hemoglobin 29.3 pg (25-34); Mean Corpuscular Hgb Conc 32.6 g/dL (32-36); Mean Corpuscular Volume 89.8 fL (80-100); Mean Platelet Volume 9.2 fL (7.4-10.4); Platelet Count 158 K/uL (130-400); RDW Coefficient of Variation 13.6 % (11.5-14.5); RDW Standard Deviation 45.2 fL (36.4-46.3); Red Blood Count 4.03 M/uL (4.7-6.1); White Blood Count 7.48 K/uL (4.8-10.8)
[2020-10-28 07:37] LABS: Albumin Globulin Ratio 0.7 (0.9-2); Albumin Level 2.8 gm/dl (3.4-5.0); BUN Creatinine Ratio 19.4 (10-20); Bilirubin,Total 0.5 mg/dl (0.2-1); Calcium 8.8 mg/dl (8.5-10.1); Est GFR (African American) 94.5 ml/min; Est GFR (Non-African American) 81.5 ml/min; Globulin 3.9 gm/dl (2.5-4.0); Potassium 4.4 mmol/L (3.5-5.1); Total Protein 6.7 gm/dl (6.4-8.2)
[2020-10-28] MEDS: OMEGA-3 (PURIFIED FISH OIL) 1 GM CAP PO SCH ×2 (08:28→20:07)
[2020-10-28] MEDS: POLYETHYLENE (MIRALAX) 17 GM PACK PO PRN (08:28)
[2020-10-28] MEDS: HEPARIN SOD 5,000 UNIT/0.5 ML VIAL SQ SCH ×2 (08:28→20:09)
[2020-10-28] MEDS: MAGNESIUM OXIDE 400 MG TAB PO SCH (08:29)
[2020-10-28] MEDS: CHOLECALCIFEROL 1,000 UNITS 25 MCG TAB PO SCH ×2 (08:29→20:07)
[2020-10-28] MEDS: MULTIVITAMIN TAB PO SCH (08:29)
[2020-10-28 08:45] LABS: Basophils # (auto) 0.05 K/uL (0-0.2); Basophils % (auto) 0.7 %; Eosinophils # (auto) 0.11 K/uL (0-0.5); Eosinophils % (auto) 1.5 %; Immature Granulocytes # (auto) 0.01 K/uL (0.00-0.02); Immature Granulocytes % (auto) 0.1 %; Lymphocytes # (auto) 3.34 K/uL (1.2-3.4); Lymphocytes % (auto) 44.7 %; Monocytes # (auto) 0.95 K/uL (0.11-0.59); Monocytes % (auto) 12.7 %; Neutrophils # (auto) 3.02 K/uL (1.4-6.5); Neutrophils % (auto) 40.3 %; RBC Morphology Unremarkable
[2020-10-28] MEDS: INSULIN ASPART 100 UNITS/ML 3 ML PEN SC SCH ×4 (08:54→20:57)
--- NOTE | 2020-10-28 12:47 | Hospitalist Progress Note ---
Date of Service October 28, 2020 Assessment & Plan (1) BPH w urinary obs/LUTS: Plan: Urine culture negative so far but may have been obtained after antibiotics started. Previous cultures from 09/30 showed coag negative staph and Enterococcus, both sensitive to daptomycin Patient was switched over to oral Levaquin yesterday If final cultures are unremarkable, can finish long course of Levaquin In any event, patient would likely benefit from routine urological evaluation once acute issues have resolved (2) Pyelonephritis: Plan: See above, on imaging but culltures not correlating (3) Type 2 diabetes mellitus: Plan: Hold Metformin and glipizide. Placed on Accu-Cheks before meals and at bedtime NovoLog coverage per scale hemoglobin A1c 7.1% (4) Mild cognitive impairment: Plan: metabolic encephalopahty poa, now resolving Patient is able to communicate effectively. Is not on any specific medication or treatment (5) DVT prophylaxis: Plan: Heparin subcu for DVT prevention Plan: PT/OT evaluation prior to discharge planning Admission and Anticipated Discharge Date Admission Date: October 25, 2020 Subjective Seen and examined. Patient seems to be improving, tells me he is feeling much better. Feels he is able to urinate with less difficulty than previous. Patient has been on antibiotics with daptomycin. Urine culture so far has been unrevealing. Patient has been afebrile and other vitals are stable. Physical Exam Constitutional: cooperative; no acute distress Neck: trachea midline, no thyromegaly Respiratory: normal respiratory effort Auscultation: lungs clear to auscultation bilaterally; no crackles, no rales, no rhonchi and no wheezes Cardiovascular: Rate/Rhythm: regular rate and regular rhythm Heart Sounds: normal S1 and normal S2 Gastrointestinal (Abdomen): Inspection/Auscultation: abdomen normal to inspection Percussion/Palpation: abdomen soft; abdomen nontender, no guarding, abdomen not rigid and no hepatosplenomegaly Skin: no rashes, warm and dry Results & Data Results & Data ([facility]) Vital Signs (Past 12 Hours) Vital Signs Temp Pulse Resp BP Pulse Ox 10/28/20 07:42 36.6 C 80 16 119/71 96 Laboratory Results Laboratory Results WBC 7.48 K/uL (4.8-10.8) 10/28/20 06:14 RBC 4.03 M/uL (4.7-6.1) L 10/28/20 06:14 Hgb 11.8 g/dL (14.0-18.0) L 10/28/20 06:14 Hct 36.2 % (42-52) L 10/28/20 06:14 MCV 89.8 fL (80-100) 10/28/20 06:14 MCH 29.3 pg (25-34) 10/28/20 06:14 MCHC 32.6 g/dL (32-36) 10/28/20 06:14 RDW Std Deviation 45.2 fL (36.4-46.3) 10/28/20 06:14 RDW Coeff of Kayce 13.6 % (11.5-14.5) 10/28/20 06:14 Plt Count 158 K/uL (130-400) 10/28/20 06:14 MPV 9.2 fL (7.4-10.4) 10/28/20 06:14 Immature Gran % (Auto) 0.1 % 10/28/20 06:14 Neut % (Auto) 40.3 % 10/28/20 06:14 Lymph % (Auto) 44.7 % 10/28/20 06:14 [place] % (Auto) 12.7 % 10/28/20 06:14 Eos % (Auto) 1.5 % 10/28/20 06:14 Baso % (Auto) 0.7 % 10/28/20 06:14 Neut # (Auto) 3.02 K/uL (1.4-6.5) 10/28/20 06:14 Lymph # (Auto) 3.34 K/uL (1.2-3.4) 10/28/20 06:14 [place] # (Auto) 0.95 K/uL (0.11-0.59) H 10/28/20 06:14 Eos # (Auto) 0.11 K/uL (0-0.5) 10/28/20 06:14 Baso # (Auto) 0.05 K/uL (0-0.2) 10/28/20 06:14 Immature Gran # (Auto) 0.01 K/uL (0.00-0.02) 10/28/20 06:14 Absolute Nucleated RBC Cancelled 10/26/20 05:18 Nucleated RBC % (auto) Cancelled 10/26/20 05:18 Neutrophils % (Manual) Cancelled 10/26/20 05:18 Band Neutrophils % Cancelled 10/26/20 05:18 Lymphocytes % (Manual) Cancelled 10/26/20 05:18 Prolymphocyte % Cancelled 10/26/20 05:18 Reactive Lymphs % (Man) Cancelled 10/26/20 05:18 Monocytes % (Manual) Cancelled 10/26/20 05:18 Eosinophils % (Manual) Cancelled 10/26/20 05:18 Basophils % (Manual) Cancelled 10/26/20 05:18 Metamyelocytes % (Man) Cancelled 10/26/20 05:18 Myelocytes % (Man) Cancelled 10/26/20 05:18 Promyelocytes % (Man) Cancelled 10/26/20 05:18 Blast Cells % (Manual) Cancelled 10/26/20 05:18 Plasma Cell % (Manual) Cancelled 10/26/20 05:18 Other Cells % Cancelled 10/26/20 05:18 Nucleated RBC % Cancelled 10/26/20 05:18 Neutrophils # (Manual) Cancelled 10/26/20 05:18 Band Neutrophils # Cancelled 10/26/20 05:18 Total Absolute Neuts Cancelled 10/26/20 05:18 Lymphocytes # (Manual) Cancelled 10/26/20 05:18 Prolymphocyte # Cancelled 10/26/20 05:18 Reactive Lymphs # Cancelled 10/26/20 05:18 Total Abs Lymphocytes Cancelled 10/26/20 05:18 Monocytes # (Manual) Cancelled 10/26/20 05:18 Eosinophils # (Manual) Cancelled 10/26/20 05:18 Basophils # (Manual) Cancelled 10/26/20 05:18 Metamyelocytes # (Man) Cancelled 10/26/20 05:18 Myelocytes # (Manual) Cancelled 10/26/20 05:18 Promyelocytes # (Man) Cancelled 10/26/20 05:18 Blast Cells # (Man) Cancelled 10/26/20 05:18 Plasma Cell # (Manual) Cancelled 10/26/20 05:18 Other Cells # Cancelled 10/26/20 05:18 Nucleated RBCs # (Man) Cancelled 10/26/20 05:18 Hypersegmented Neuts Cancelled 10/26/20 05:18 Hyposegmented Neuts Cancelled 10/26/20 05:18 Hypogranular Neuts Cancelled 10/26/20 05:18 Large Granular Lymphs Cancelled 10/26/20 05:18 # Lrg Granular Lymphs Cancelled 10/26/20 05:18 Hairy Cells Cancelled 10/26/20 05:18 Smudge Cells Cancelled 10/26/20 05:18 Toxic Granulation Cancelled 10/26/20 05:18 Toxic Vacuolation Cancelled 10/26/20 05:18 Dohle Bodies Cancelled 10/26/20 05:18 Jose David Rods Cancelled 10/26/20 05:18 Platelet Estimate Cancelled 10/26/20 05:18 Hypogranular Platelets Cancelled 10/26/20 05:18 Clumped Platelets Cancelled 10/26/20 05:18 Giant Platelets Cancelled 10/26/20 05:18 Platelet Satelliting Cancelled 10/26/20 05:18 RBC Morphology Unremarkable 10/28/20 06:14 Polychromasia Cancelled 10/26/20 05:18 Hypochromasia Cancelled 10/26/20 05:18 Poikilocytosis Cancelled 10/26/20 05:18 Basophilic Stippling Cancelled 10/26/20 05:18 Anisocytosis Cancelled 10/26/20 05:18 Microcytosis Cancelled 10/26/20 05:18 Macrocytosis Cancelled 10/26/20 05:18 Spherocytes Cancelled 10/26/20 05:18 Pappenheimer Bodies Cancelled 10/26/20 05:18 Sickle Cells Cancelled 10/26/20 05:18 Target Cells Cancelled 10/26/20 05:18 Tear Drop Cells Cancelled 10/26/20 05:18 Ovalocytes Cancelled 10/26/20 05:18 Stomatocytes Cancelled 10/26/20 05:18 [place] Bodies Cancelled 10/26/20 05:18 Echinocytes Cancelled 10/26/20 05:18 Acanthocytes (Spur) Cancelled 10/26/20 05:18 Rouleaux Cancelled 10/26/20 05:18 RBC Agglutinates Cancelled 10/26/20 05:18 Schistocytes Cancelled 10/26/20 05:18 RBC Morph Comment Cancelled 10/26/20 05:18 Sezary Cell Cancelled 10/26/20 05:18 Sodium 140 mmol/L (136-145) 10/28/20 06:14 Potassium 4.4 mmol/L (3.5-5.1) D 10/28/20 06:14 Chloride 109 mmol/L (98-107) H 10/28/20 06:14 Carbon Dioxide 28 mmol/L (21-32) 10/28/20 06:14 Anion Gap 3.0 (3-11) 10/28/20 06:14 BUN 16 mg/dl (7-18) 10/28/20 06:14 Creatinine 0.84 mg/dl (0.6-1.4) 10/28/20 06:14 Est Cr Clr Drug Dosing 78.0 ml/min 10/28/20 06:14 Est GFR ( Amer) 94.5 ml/min 10/28/20 06:14 Est GFR (Non-Af Amer) 81.5 ml/min 10/28/20 06:14 BUN/Creatinine Ratio 19.4 (10-20) 10/28/20 06:14 Glucose 153 mg/dl (70-99) H 10/28/20 06:14 POC Glucose 186 mg/dl (70-99) H 10/28/20 12:09 Estimat Average Glucose 140 mg/dl 10/26/20 06:37 Hemoglobin A1c 6.5 % (4.5-5.6) H 10/26/20 06:37 Calcium 8.8 mg/dl (8.5-10.1) 10/28/20 06:14 Magnesium 1.9 mg/dl (1.8-2.4) 10/25/20 17:17 Total Bilirubin 0.5 mg/dl (0.2-1) 10/28/20 06:14 AST 22 U/L (15-37) 10/28/20 06:14 ALT 29 U/L (12-78) 10/28/20 06:14 Alkaline Phosphatase 61 U/L (45-117) 10/28/20 06:14 Troponin I 0.033 ng/ml (0-0.045) 10/25/20 17:17 Total Protein 6.7 gm/dl (6.4-8.2) 10/28/20 06:14 Albumin 2.8 gm/dl (3.4-5.0) L 10/28/20 06:14 Globulin 3.9 gm/dl (2.5-4.0) 10/28/20 06:14 Albumin/Globulin Ratio 0.7 (0.9-2) L 10/28/20 06:14 TSH 0.876 uIu/ml (0.300-4.500) 10/25/20 17:17 Urine Color Yellow 10/25/20 18:32 Urine Appearance Clear (Clear) 10/25/20 18:32 Urine pH 5.5 (4.5-7.5) 10/25/20 18:32 Ur Specific [place] 1.013 (1.000-1.030) 10/25/20 18:32 Urine Protein Negative (Negative) 10/25/20 18:32 Urine Glucose (UA) Negative (Negative) 10/25/20 18:32 Urine Ketones Negative (Negative) 10/25/20 18:32 Urine Blood Negative (Negative) 10/25/20 18:32 Urine Nitrite Negative (Negative) 10/25/20 18:32 Urine Bilirubin Negative (Negative) 10/25/20 18:32 Urine Urobilinogen Negative (Negative) 10/25/20 18:32 Ur Leukocyte Esterase 1+ (Negative) H 10/25/20 18:32 Urine WBC (Auto) 5-10 /hpf (0-5) H 10/25/20 18:32 Urine RBC (Auto) 0-4 /hpf (0-4) 10/25/20 18:32 U Hyaline Cast (Auto) 0 /lpf (0-5) 10/25/20 18:32 U Epithel Cells (Auto) >30 /lpf (0-5) H 10/25/20 18:32 Urine Bacteria (Auto) Negative (Negative) 10/25/20 18:32 COVID-19 Eval Order Covid19 at [facility] 10/25/20 20:25 SARS-CoV-2 (PCR) NEGATIVE (Negative) 10/25/20 20:25 Impressions Abdomen/Pelvis CT 10/25/20 16:[address] WITH IV CONTRAST CT DOSE: 895.09 mGy.cm HISTORY: Urinary retention, fever, h/o stones TECHNIQUE: Multiaxial CT images of the abdomen and pelvis were performed following the use of intravenous contrast. A dose lowering technique was utilized adhering to the principles of ALARA. COMPARISON STUDY: None. FINDINGS: Mild peripheral interstitial thickening at the lung bases. This is likely chronic. No pneumoperitoneum. No pneumatosis. There is an old mild anterior wedge-shaped compression deformity at L1. No acute fractures within the visualized osseous structures. The heart is mildly enlarged. Coronary artery calcifications are noted. Small fat-containing bilateral inguinal hernias. The liver, gallbladder, spleen, and adrenal glands are within normal limits. There are few punctate calcifications within the pancreas consistent with chronic pancreatitis. No CT evidence for acute pancreatitis. No renal or ureteral stones. No hydronephrosis. Bilateral renal hypodense lesions are noted. The majority of these favor cysts. Dominant lesion within the lower pole of the right kidney measures 6.3 cm. There is an indeterminate exophytic intermediate density lesion within the anterior interpolar left kidney measuring 7 mm. The main portal vein is patent. Normal caliber abdominal aorta. No retroperitoneal lymphadenopathy. The prostate gland is mildly enlarged. The bladder is mildly distended. There is a 5.5 cm right anterior bladder diverticulum. No pelvic free fluid. Moderate well-formed stool within the colon. No bowel wall thickening or obstruction. Mild bilateral perinephric fat stranding. There is mild bladder wall thickening at the right anterior bladder diverticulum with minimal adjacent fat stranding. This could represent a focal cystitis. IMPRESSION: 1. No bowel wall thickening or obstruction. 2. Chronic pancreatitis. No CT evidence for acute pancreatitis. 3. Mild bilateral perinephric edema/fat stranding. This is indeterminate and could be chronic. Recommend correlation with urinalysis to exclude the less likely possibility of an infectious process. 4. No renal stones or hydronephrosis. 5. Mildly distended bladder with a 5.5 cm anterior bladder diverticulum. The wall of the diverticulum is slightly thickened with minimal adjacent fat stranding. This could represent a cystitis. Recommend correlation with urinalysis. 6. An indeterminate 7 mm intermediate density lesion within the left kidney. This could represent a hyperdense cyst or subcentimeter renal mass. 7. Additional findings as described above. ACT 112: Negative or not required by law. Electronically signed by: Sony Eid M.D. 10/25/2020 6:41 PM Chest X-Ray 10/25/20 16:52 XR chest 1V portable HISTORY: weakness COMPARISON: None. FINDINGS: No pneumothorax. No pleural effusions. The heart is mildly enlarged. There are low lung volumes and mild elevation of the right hemidiaphragm. There is mild central pulmonary vascular congestion without overt edema. No focal lung consolidations to suggest pneumonia. IMPRESSION: Cardiomegaly with mild central pulmonary vascular congestion without overt edema. ACT 112: Negative or not required by law. Electronically signed by: Sony Eid M.D. 10/25/2020 5:11 PM PG Care Time/CCT Total # of Minutes Spent Total Time Spent with Patient: Total time spent is greater than 50% in coordination of care (as documented) at patient's floor/unit and/or counseling patient: Coding Level of Care Code 67201 Subseq Hosp Care Lvl 2 Diagnoses BPH w urinary obs/LUTS N40.1; N13.8 Pyelonephritis N12 Type 2 diabetes mellitus E11.9 Mild cognitive impairment G31.84 DVT prophylaxis Z29.9
[2020-10-28] MEDS: levoFLOXacin 750 MG TAB PO SCH (13:01)
[2020-10-28] MEDS: TAMSULOSIN HCL 0.4 MG CAP PO SCH (20:07)
[2020-10-28] MEDS: ACETAMINOPHEN 325 MG TAB PO PRN (20:18)
[2020-10-29 07:41] LABS: Hematocrit (blood only) 36.1 % (42-52); Hemoglobin 11.7 g/dL (14.0-18.0); Mean Corpuscular Hemoglobin 29.1 pg (25-34); Mean Corpuscular Hgb Conc 32.4 g/dL (32-36); Mean Corpuscular Volume 89.8 fL (80-100); Mean Platelet Volume 9.2 fL (7.4-10.4); Platelet Count 190 K/uL (130-400); RDW Coefficient of Variation 13.7 % (11.5-14.5); RDW Standard Deviation 45.6 fL (36.4-46.3); Red Blood Count 4.02 M/uL (4.7-6.1); White Blood Count 7.62 K/uL (4.8-10.8)
[2020-10-29 08:17] LABS: BUN Creatinine Ratio 17.3 (10-20); Calcium 8.7 mg/dl (8.5-10.1); Creatinine Clr Calc Pharmacy 76.2 ml/min; Est GFR (African American) 93.6 ml/min; Est GFR (Non-African American) 80.8 ml/min
[2020-10-29] MEDS: MULTIVITAMIN TAB PO SCH (08:35)
[2020-10-29] MEDS: CHOLECALCIFEROL 1,000 UNITS 25 MCG TAB PO SCH (08:36)
[2020-10-29] MEDS: OMEGA-3 (PURIFIED FISH OIL) 1 GM CAP PO SCH (08:36)
[2020-10-29] MEDS: HEPARIN SOD 5,000 UNIT/0.5 ML VIAL SQ SCH (08:37)
[2020-10-29 09:25] LABS: Basophils # (auto) 0.06 K/uL (0-0.2); Basophils % (auto) 0.8 %; Eosinophils # (auto) 0.17 K/uL (0-0.5); Eosinophils % (auto) 2.2 %; Immature Granulocytes # (auto) 0.02 K/uL (0.00-0.02); Immature Granulocytes % (auto) 0.3 %; Lymphocytes # (auto) 4.33 K/uL (1.2-3.4); Lymphocytes % (auto) 56.8 %; Monocytes # (auto) 0.72 K/uL (0.11-0.59); Monocytes % (auto) 9.4 %; Neutrophils # (auto) 2.32 K/uL (1.4-6.5); Neutrophils % (auto) 30.5 %
[2020-10-29] MEDS: INSULIN ASPART 100 UNITS/ML 3 ML PEN SC SCH (09:39)
[2020-10-29] MEDS: MAGNESIUM OXIDE 400 MG TAB PO SCH (09:52)
[2020-10-29] MEDS: levoFLOXacin 750 MG TAB PO SCH (10:22)
--- NOTE | 2020-10-29 17:19 | Discharge Summary ---
Date of Service October 29, 2020 Admission HPI Per Admitting Provider The patient is a 80-year-old male with a past medical history including BPH with LUTS, lumbar spinal stenosis, kidney stones, depression, hyperlipidemia, left detached retina, hearing difficulty, diabetes mellitus type 2, mild cognitive impairment, diabetic neuropathy, chronic venous stasis dermatitis bilateral lower extremities and generalized arthritis. The patient presents with symptoms as noted above. He has previously followed with urology in [place], but that person has read since retired. Admission Exam Per Admitting Provider The patient is awake, alert and oriented 3, well developed and well nourished, normocephalic and atraumatic, lying in bed and in no acute distress. HEENT--PERRL, EOMI, mucous membranes and oropharynx normal. Neck--supple. No JVD. No bruits. Thyroid normal, trachea midline, no adenopathy. Heart--normal S1 and S2. No murmurs, rubs or gallops. Lungs--clear bilaterally, no respiratory distress, no accessory muscle use. Abdomen--normal bowel sounds and soft. Nontender. Nondistended. Extremities--no cyanosis or clubbing. No edema. Dermatologic--skin is mildly dry Neurologic--cranial nerves II through XII grossly intact. Rheumatologic--normal range of motion. Psychiatric--normal affect. Principal Diagnosis Working diagnoses: 1. Pyelonephritis with normal urinalysismay be skewed due to antibiotic therapy prior to obtaining sample 2. Cystitisas seen on CT scan 3. ? Prostatitis Chronic medical conditions: 1. BPHneed updated referral to see urology 2. Diabetes mellitus type 2 3. Mild cognitive impairment 4. Diabetic neuropathy 5. Depression 6. Chronic venous stasis/stasis dermatitis 7. OA Discharge Exam General: Resting comfortably in his hospital bed. NAD. Neck: No JVD. Negative hepatojugular reflex Cardiac: RRR without M/G/R Lungs: CTA without W/R/R Abdomen: Normoactive X4. Soft and nontender in all quadrants. No CVA tenderness Extremities: No peripheral clubbing cyanosis or edema Neuro: A&O X4 cranial nerves II through XII are grossly intact no focal neuro deficits Skin: No obvious skin lesions or rashes Discharge Data Allergies Allergy/AdvReac Type Severity Reaction Status Date / Time pregabalin [From Lyrica] Allergy racing Verified 10/25/20 17:32 heart and pain down shoulders. sulfamethoxazole AdvReac Intermediate Abdominal Unverified 10/28/20 13:17 [From Pain Sulfamethoxazole-Trimethoprim] trimethoprim AdvReac Intermediate Abdominal Unverified 10/28/20 13:17 [From Pain Sulfamethoxazole-Trimethoprim] Consultations 10/25/20 20:09 ED Decision to Admit Stat Procedures Performed none Ordered Studies Procedure Result Verified Site Urine Culture Final 10/28/20-1038 No growth - less than 1,000 colonies/mL. Urine Culture Final 10/03/20-1500 Organism 1 Coag negative Staphylococcus Wana Count 70,000 CFU/ml Sens Sensitivities to Follow Organism 2 Enterococcus faecalis Wana Count 40,000 CFU/ml Sens Sensitivities to Follow [employer] E faecalis RX M.I.C. RX M.I.C. --- --------- --- --------- Ampicillin S <=2 Ciprofloxacin S <=1 Daptomycin S <=0.5 S 2 Gent Synergy S <=500 Levofloxacin S <=1 Nitrofurantoin S <=32 S <=32 Oxacillin R >2 Penicillin S 2 Strep Synergy S <=1000 Tetracycline S <=4 R >8 Trimeth/Sulfa S <=0.5/9.5 Vancomycin S 2 S 1 10/25/20 16:52 CT abd pelvis IV con only Stat IMPRESSION: 1. No bowel wall thickening or obstruction. 2. Chronic pancreatitis. No CT evidence for acute pancreatitis. 3. Mild bilateral perinephric edema/fat stranding. This is indeterminate and could be chronic. Recommend correlation with urinalysis to exclude the less likely possibility of an infectious process. 4. No renal stones or hydronephrosis. 5. Mildly distended bladder with a 5.5 cm anterior bladder diverticulum. The wall of the diverticulum is slightly thickened with minimal adjacent fat stranding. This could represent a cystitis. Recommend correlation with urinalysis. 6. An indeterminate 7 mm intermediate density lesion within the left kidney. This could represent a hyperdense cyst or subcentimeter renal mass. 7. Additional findings as described above. CXR: IMPRESSION: Cardiomegaly with mild central pulmonary vascular congestion without overt edema. Hospital Course (1) BPH w urinary obs/LUTS: Urine culture negative-but may have been obtained after antibiotics started. Previous cultures from 09/30 showed coag negative staph and Enterococcus, both sensitive to daptomycin (which what patient was empirically treated with upon admission) Patient was switched over to oral Levaquin on 10/27/20 as culture data negative. No leukocytosis, fever, and CVA tenderness has not returned. Final cultures are unremarkable.we will plan to complete a long-term course of Levaquin as patient may have associated prostatitisascending, which subsequently led to pyelonephritis In any event, patient would likely benefit from routine urological evaluation once acute issues have resolved-to follow-up with urology as an outpatient (2) Pyelonephritis: See above, on imaging but culltures not correlating (3) Type 2 diabetes mellitus: Continue Metformin and glipizide (4) Mild cognitive impairment: Infectious encephalopahty, now resolved (5) DVT prophylaxis: Heparin subcu for DVT prevention during this hospitalization PT/OT evaluation prior to discharge planning. Patient doing well and completely independent. Plan is for discharge to home where he resides with his . He is declining visiting nurses Total Time Total Time Spent Total Time Spent (In Minutes): 45 minutes including time spent reviewing chart/records and time spent with patient in addition to preparing discharge Discharge Plan Discharge Items Patient Disposition: Home - Self-Care Reason For Visit: PYELONEPHRITIS Discharge Diagnosis: 1. Bilateral Pyelonephritis 2. Presumed prostatitis 3. BPH Activity: Resume your previous activity Non-emergency contact: Primary Care Provider and Urologist Call non-emergency contact if: you have any medication questions, your symptoms worsen, your pain is worsening and your pain is concerning for you Follow-up/Referrals: Roney Henriquez MD [Physician] - (Office will call patient with appointment date and time) Jacqueline Hewitt DO [Primary Care Provider] - 11/05/20 4:20 pm (Appointment will be with Ml Valenzuela PA-C) Diet: Carb Consistent or DM2 Addtl Attending Provider Instructions: - complete full course of antibiotic therapy (longer duration for ? associated prostatitis--> infection involving your prostate which would have spread to the kidney) - Take the probiotic while on Levaquin (antibiotic) and eat yogurt with live cultures to prevent a superinfection (as antibiotics not only eradicate "bad" bacteria but also "good") - I recommend a referral to see urology to discuss other options to treat your BPH (enlarged prostate). --Note that your Flomax has been increased to daily (as opposed to every other day) - Follow up with PCP: 7-10 days - return to the Ed for new or worsening symptoms Pending Studies at Discharge: No Stand-Alone Forms: My [facility] Medications and DC Order Prescriptions: New tamsulosin 0.4 mg Capsule 0.4 mg PO HS Qty: 30 RF: 0 levofloxacin 500 mg tablet 500 mg PO DAILY 25 Days Qty: 25 RF: 0 Saccharomyces boulardii [Florastor] 250 mg capsule 250 mg PO BID Qty: 60 RF: 0 Continued metformin 500 mg tablet 500 mg PO BID Qty: 180 RF: 1 glipizide 5 mg tablet extended release 24hr 5 mg PO DAILY Qty: 90 RF: 1 multivitamin [Daily Multiple] tablet 1 tab PO DAILY RF: 0 omega-3 fatty acids [Fish Oil Concentrate] 1,000 mg capsule 1,000 mg PO BID RF: 0 magnesium 200 mg tablet 200 mg PO DAILY RF: 0 cholecalciferol (vitamin D3) 2,000 unit tablet 2,000 units PO BID Qty: 30 RF: 0 polyethylene glycol 3350 17 gram/dose powder 17 gm PO .COMPLEX RF: 0 alpha lipoic acid 300 mg capsule 600 mg PO DAILY RF: 0 Discontinued tamsulosin [Flomax] 0.4 mg capsule 0.4 mg PO .COMPLEX Qty: 90 RF: 2 Discharge Orders: Discharge Order (Routine); Ordered 10/29/20 Ordered By: Annabelle Brown/Other Patient Handouts: A1C, Managing Type 2 Diabetes, Anatomy of the Male Urinary Tract, Bacterial Prostatitis, Benign Prostatic Hyperplasia Admission Data Admit Date/Time: 10/25/20 21:27 Attending Provider: Chuy Kelly Admit Provider: Aureliano Thakkar Primary Care Provider: Jacqueline Hewitt Other Providers: Aureliano Thakkar Other Interventions: Discharge Summary Assessment (RN) Last Done: 10/29/20 11:45 Supervising Physician Co-Signing Physician Notes Patient seen and examined on the day of discharge. I agree with the discharge summary by Annabelle BRIONES. I have reviewed the chart including labs, imaging and plans for discharge. patient feeling much better after antibiotics, no dysuria, no fever/chills making urine okay agrees to follow up with urology - Complicated UTI, pyelonephritis: treat with course of Levaquin, referral made to urology for BPH Coding Level of Care Code Established Pt D/C DAY MANAGEMENT >30 MINS Patient Type Established Diagnoses BPH w urinary obs/LUTS N40.1; N13.8 Pyelonephritis N12 Type 2 diabetes mellitus E11.9 Mild cognitive impairment G31.84 DVT prophylaxis Z29.9 Time Spent (min) 45
== END 2020-10-29 12:47 | disposition home or self-care (01) | DRG 689 ==
LOC: ED 16:11 → SUATTDRO 21:27 → 3W 21:27